=== PATIENT | female | born 1980 | race American Indian/Alaskan Native ===

== ENCOUNTER 2021-05-26 12:50 | Outpatient (CLI) | payer OTHER ==
[2021-05-26 13:30] LABS: Amphetamine Screen,Urine Negative; Benzodiazepines Screen,Urine Negative; Cannabinoid Screen,Urine Negative; Cocaine Screen,Urine Negative; Methadone Screen,Urine Negative; Opiate Screen,Urine Negative
[2021-05-26 13:31] LABS: Basophils # (Auto) 0.1 K/mm3 (0.0-0.1); Basophils % (Auto) 1.2 % (0.0-1.8); Eosinophils % (Auto) 0.8 % (0.0-4.3); Hematocrit 41.3 % (30.3-42.9); Hemoglobin 13.4 gm/dl (10.1-14.3); Lymphocytes # (Auto) 2.1 K/mm3 (1.2-5.4); Lymphocytes % (Auto) 37.7 % (13.4-35.0); Mean Corpuscular HGB Conc 33 % (30-34); Mean Corpuscular Volume 96 fl (79-97); Monocytes # (Auto) 0.5 K/mm3 (0.0-0.8); Monocytes % (Auto) 8.8 % (0.0-7.3); Platelet Count 386 K/mm3 (140-440); Red Cell Distribution Width 13.7 % (13.2-15.2)
[2021-05-26 13:42] LABS: % Iron Saturation 31.79 %; Alanine Aminotransferase 13 units/L (7-56); BUN/Creatinine Ratio 10; Blood Urea Nitrogen 9 mg/dL (7-17); Calcium 8.9 mg/dL (8.4-10.2); Chol/HDL Ratio 3.57 %; HDL Cholesterol 54 mg/dL (40-59); Hemolysis Index 5; Iron 62 ug/dL (37-170); LDL Cholesterol,Direct 130 mg/dL (50-130); Total Iron Binding Capacity 195 mcg/dL (250-450)
== END 2021-05-26 12:51 | disposition home or self-care (01) ==
LOC: LAB 12:50
PROVIDERS: ATTEND Surgery
DX: Z01.812 Encounter for preprocedural laboratory examination (principal); Z13.1 Encounter for screening for diabetes mellitus; Z13.21 Encounter for screening for nutritional disorder; Z13.29 Encounter for screening for other suspected endocrine disorder; E66.01 Morbid (severe) obesity due to excess calories; E55.9 Vitamin D deficiency, unspecified; K30 Functional dyspepsia
CPT/HCPCS: 36415; 80053; 80061; 80307; 82306; 82607; 82728; 83036; 83550; 84703; 85025; 85730